=== PATIENT | female | born 1985 | race Caucasian/White ===

== ENCOUNTER 2021-08-11 01:40 | Day surgery (SDC) | payer OTHER, SELFPAY ==
[2021-08-04 09:36] VITALS: BMI 26.6
--- NOTE | 2021-08-04 13:05 | PC.NURSE ---
Report to the Outpatient Waiting Room, entrance under the green pavilion located off [facility], at 0600 on date 08-11-21. OR Time: 0730. - You will be asked a series of questions to screen for COVID 19 for your protection. - A mask is required within the hospital. - No visitors are allowed at this time. Preoperative COVID Testing Requirements: No COVID Test needed if: (proof is required; if not received patient will have Rapid Test prior to entry) - Patient has received COVID Vaccine at least 14 days prior to procedure date or - Patient has positive COVID test result within last 90 days of surgery date. COVID Test needed if above criteria is not met If not COVID vaccinated a COVID test must be conducted within 72 hours of surgery and patient is asked to isolate self from time of testing until procedure. You will go to the [facility] Site for your COVID testing. The [facility] Testing site is located at the corner of [address] [facility]. You will only be called if COVID results are positive and your surgeon may reschedule your elective surgery date. Patients may have clear liquids (water, carbonated beverages, clear teas, apple juice) until 3 hours prior to surgery with a maximum of 20 ounces. 0430 - No food from midnight until time of surgery - Infants may have breast milk until 4 hours before surgery, infant formula 6 hours prior to surgery. - Children will be allowed to drink immediately following surgery. If applicable, please bring a bottle or sippy cup to assist with drinking. Juice, water, soda, and popsicles are readily available. For infants on formula, please bring formula the day of surgery. Pacifiers are allowed. Take the following medications with a SIP of water the morning of surgery: None Medications to discontinue per physician: Vitamins and supplements Date to take last dose: 08-08-21 Please no make-up, nail yoruba, hairspray, perfume, deodorant, or body powder the day of surgery. No jewelry (including any body piercings) or valuables the day of surgery, leave them at home. Please take a shower or bath the night before, or the morning of, surgery with an antibacterial soap. Wear comfortable, loose fitting clothing. Children are encouraged to wear pajamas. - Jewelry must be removed prior to entering the operating room. Rings and piercings that are not removed may be cut off. - The hospital will not accept responsibility for valuables. - Please leave all valuables, including medications, at home the day of surgery. If you are going home after surgery, a licensed rental car ferry driver must drive you home. - NO public transportation without another adult. - We recommend that an adult stay with you for 24 hours following discharge. - We also recommend that you do not drive, make important decision, drink alcoholic beverages, or take any drugs that were not prescribed by your health care provider for at least 24 hours after your discharge time. For Pediatric surgeries, we recommend two adults accompany the child home (only one inside the building at this time). Follow any additional instructions given to you from your surgeon. Telephone instructions given to Laurita Marquez and asked if any additional questions and then verbalized understanding. Patient advised to call surgeon office or pre surgery nurse liaison [phone] if any additional questions.
[2021-08-11] VITALS (7 sets, daily range): BP systolic 96–117; BP diastolic 61–79; PULSE 48–79; RESP 10–16; TEMP 36.4–37.1; O2SAT 97–100
[2021-08-11] MEDS: ACETAMINOPHEN 500 MG TABLET 1000 MG PO (06:22)
[2021-08-11] MEDS: KETOROLAC 15 MG/ML VIAL (*BKC) IV PUSH (06:31)
[2021-08-11] MEDS: LACTATED RINGERS 1,000 ML 30 ML IV CONT ×2 (06:32→08:16)
--- NOTE | 2021-08-11 06:37 | WPDANESEPPF ---
Anes - Initial Pre Proc Eval Procedure: Operation Date: 08/11/21 07:30 Proposed Procedures p Laparoscopic Right Ovarian Cystectomy with Bilateral Laparoscopic Salpingectomy - Janes Murdock MD Date/Time: 08/11/21 06:37 Surgeon: Janes Murdock MD Pre Op Diagnosis: right ovarian cyst, desires sterilization Patient Data Age: 36 Gender: F Height: 1.7 m Weight: 77.4 kg Last Vital Signs Temp 37.1 C 08/11/21 06:14 Pulse 79 08/11/21 06:14 Resp 16 08/11/21 06:14 BP 117/76 08/11/21 06:14 Pulse Ox 99 08/11/21 06:14 Allergies Allergy/AdvReac Type Severity Reaction Status Date / Time No Known Allergies Allergy Unknown Verified 08/11/21 06:17 Home Medications Medication Instructions Recorded Confirmed Type tizjofhw-oei-xdiee acid-biotin 1 tablet PO DAILY 08/04/21 08/11/21 History [Women's Multivitamin w-Biotin] tw-tw-aifl-FA-Ca carb-vit K 1 tablet PO DAILY 08/04/21 08/11/21 History [Women's Multivitamin] Patient hx anesthesia problems: none Family hx anesthesia problems: none Results Review: All pre-operative results and documents have been reviewed as part of the pre-operative evaluation. [facility] Surgical History Surgical History (Updated 08/11/21 @ 06:38 by Darren Hernández MD) H/O breast augmentation Status post wisdom tooth extraction Social History Social History Smoking status: Never smoker Second hand tobacco smoke exposure: No Alcohol intake: current Drinks per week: 1 Alcohol use details: wine Substance use: never Substance use type: does not use Living arrangements: with family Spiritual care concerns: No Anes - Eval Final PreProcedure Day of Procedure 08/11/21 06:37 Patient weight: overweight Heart: regular rate and rhythm Lungs: clear to auscultation Airway: Mallampati scale class II Neurological: alert and oriented Last oral intake: >/= 8 hours ASA classification: II Emergent: no Anesthetic plan: proceed Anesthesia type and monitoring: general ETT and standard monitoring Results Review: All pre-operative results and documents have been reviewed as part of the pre-operative evaluation. Informed Consent: The patient's anesthetic plan and its attendant risks and benefits were discussed with the patient/family/POA. Questions were solicited and answers provided to the satisfaction of the patient/family/POA.
--- NOTE | 2021-08-11 07:23 | WPDHPUPDATE1 ---
History and Physical Update Update Date/Time: 08/11/21 07:23 History and Physical has been reviewed, including an updated exam of the patient. There are NO changes in the patient's condition. Risks, benefits, and alternatives have been discussed and questions answered. Patient agrees to proceed with procedure.
--- NOTE | 2021-08-11 08:24 | W.PM.PROC2 ---
Procedure Note - Detailed Date of Procedure 08/11/21 Pre-op Diagnosis right ovarian cyst, desires sterilization Post-op Diagnosis same Procedure Performed Laparoscopic bilateral salpingectomy, right ovarian cystectomy Surgeon Janes Murdock MD Anesthesia general Indications Unwanted fertility, right ovarian cyst Findings Right ovarian cyst, otherwise normal pelvic anatomy Description of Procedure The patient was taken the operating room. She was prepped and draped in the dorsal lithotomy position after induction of general anesthesia. A 5 mm skin incision was made in the left upper quadrant of the abdominal skin. A 5 mm trocar was inserted the intra-abdominal cavity under direct visualization of the scope. Pneumoperitoneum was achieved. A 5 mm trocar was inserted in the left lower quadrant identical fashion. A 5 mm infraumbilical trocar was inserted in identical fashion as well. The bilateral fallopian tubes were removed. This was done by using a LigaSure cautery. The mesosalpinx adjacent to the tube was cauterized transected with LigaSure. This was initiated in the area the ovary and in a stepwise fashion moved medially to the area of the cornu of the uterus. Once there the fallopian tube was cauterized and transected. This was done in identical fashion on each side. The fallopian tubes were taken out through the left lower quadrant trocar site. Right ovarian cystectomy was performed. Using sharp and blunt dissection and cautery the right ovarian cyst was from the parenchyma of the ovary. The capsule the cyst peeled away cleanly from the ovarian parenchyma. The cut surface of the ovary was then cauterized with unipolar cautery. The ovary was cleaned with irrigation and and found to be hemostatic. The pneumoperitoneum was reduced. The trocars removed. The skin was closed with subcuticular 4 Monocryl and covered with Dermabond. She was taken to cover stable condition. Sponge lap and needle counts were correct x2. Estimated Blood Loss 5 Drains No Packing No Pathology yes Complications No immediate complications Condition stable Disposition PACU
[2021-08-11] MEDS: fentaNYL CITRATE INJ (*CRX) 100 MCG/2 ML VIAL 25 MCG IV PUSH ×6 (08:31→09:35)
[2021-08-11] MEDS: oxyCODONE HCL (*CRX) 5 MG TAB IR PO (09:46)
[2021-08-11] MEDS: diphenhydrAMINE HCl INJ 50 MG/ML VIAL 25 MG IV PUSH (10:19)
== END 2021-08-11 10:15 | disposition home or self-care (01) ==
PROVIDERS: Visit Provider Obstetrics & Gynecology
PROC: (CPT 49320; principal; 2021-08-11 07:30)
DX: Z30.2 Encounter for sterilization (principal); N83.11 Corpus luteum cyst of right ovary
CPT/HCPCS: 58661; 58662; 88302; 88305; A9270; J1100; J1170; J1200; J1885; J2250; J2405; J2704; J2710; J3010; J7030; J7120